=== PATIENT | female | born 1995 | race African-American/Black ===

== ENCOUNTER 2018-06-08 06:42 | Emergency (ER) | payer BC ==
[~2018-06-08 06:42] MED LIST: ALBU2.5V8 INH; ATOR40TA59 PO; CARV6.2541 PO; CYCL-331 PO; FENO145T30 PO; FLUO15CR2 TP; GABA-586 PO; IBUP800T19 PO; INSU100V5 IJ; ISOS30TA4 PO; LORA10TA65 PO; LOSA25TA11 PO; MOME220A IH; PRED50TA PO; RANI150T21 PO
[2018-06-08] MEDS ORDERED: ONDANSETRON PF 4 MG/2 ML VIAL. IV ONE (07:00)
[2018-06-08] MEDS ORDERED: IV NORMAL SALINE 1,000ML 1,000 ML IV SCH (07:00)
[2018-06-08 07:07] LABS: BASO % 0 % (0-3); EOS # 0.4 x10^3/uL (0.0-0.7); EOS % 4 % (0-3); HEMATOCRIT 40.6 % (36.0-47.0); HEMOGLOBIN 13.6 g/dL (12.0-15.5); LYMPH % 51 % (24-48); MEAN CORPUSCULAR HEMOGLOBIN 29 pg (25-35); MEAN CORPUSCULAR HGB CONC 33 g/dL (31-37); MEAN CORPUSCULAR VOLUME 86 fL (79-100); MONO # 0.6 x10^3/uL (0.0-1.1); MONO % 7 % (0-9); NEUT # 3.7 x10^3uL (1.8-7.7); NEUT % 38 % (31-73); PLATELET COUNT 348 x10^3/uL (140-400); RED BLOOD COUNT 4.71 x10^6/uL (3.50-5.40); RED CELL DISTRIBUTION WIDTH 13.9 % (11.5-14.5); WHITE BLOOD COUNT 9.7 x10^3/uL (4.0-11.0)
--- NOTE | 2018-06-08 07:11 | PHYS DOC ---
Past History Past Medical History: Asthma Past Surgical History: Other Smoking: Non-smoker Alcohol Use: None Drug Use: None Adult General Chief Complaint Chief Complaint: FLANK PAIN HPI HPI Patient is a 23 year old female who presents with complaint of severe right lower quadrant abdominal pain. Patient states that she awoke with pain shortly prior to arrival. Patient states that her pain as 10 out of 10 and states that it waxes and wanes. It is very sharp and radiates towards her right pelvis. Has had associated nausea. Denies any known fever. No previous history of similar symptoms. States that she is asymptomatic prior to going to bed last night. Past medical history for GERD and asthma. Has not taking medications for symptoms. Currently on Depo-Provera and is unsure when she last had a period but states that they're very irregular. Denies any current vaginal bleeding or abnormal discharge. Review of Systems Review of Systems Constitutional: Denies fever or chills [] Eyes: Denies change in visual acuity, redness, or eye pain [] HENT: Denies nasal congestion or sore throat [] Respiratory: Denies cough or shortness of breath [] Cardiovascular: Denies chest pain or edema[] GI: Abdominal pain, nausea, denies diarrhea[] : Denies dysuria or hematuria [] Musculoskeletal: Denies back pain or joint pain [] Integument: Denies rash or skin lesions [] Neurologic: Denies headache, focal weakness or sensory changes [] All other systems were reviewed and found to be within normal limits, except as documented in this note. Current Medications Current Medications Current Medications Medications (Trade) Dose Ordered Sig/Johny Start Time Stop Time Status Last Admin Dose Admin Fentanyl Citrate (Fentanyl 2ml Vial) 50 mcg PRN Q15MIN PRN 06/08/18 07:00 06/09/18 06:59 Ondansetron HCl (Zofran) 4 mg 1X ONCE 06/08/18 07:00 06/08/18 07:02 DC Sodium Chloride 1,000 ml @ 1,000 mls/hr Q1H 06/08/18 07:00 06/08/18 07:59 Allergies Allergies Allergies Coded Allergies Type Severity Reaction Last Updated Verified No Known Drug Allergies 07/20/13 No Physical Exam Physical Exam Constitutional: Alert, afebrile, vital signs stable, writhing in pain. [] HENT: Normocephalic, atraumatic, bilateral external ears normal, oropharynx moist, no oral exudates, nose normal. [] Eyes: PERRLA, EOMI, conjunctiva normal, no discharge. [] Neck: Normal range of motion, no tenderness, supple, no stridor. [] Cardiovascular:Heart rate regular rhythm, no murmur [] Lungs & Thorax: Bilateral breath sounds clear to auscultation [] Abdomen: Bowel sounds normal, soft, right lower quadrant tenderness to palpation , minimal guarding, no rebound tenderness, no masses, no pulsatile masses. [] Skin: Warm, dry, no erythema, no rash. [] Back: No tenderness, no CVA tenderness. [] Extremities: No tenderness, no cyanosis, no clubbing, ROM intact, no edema. [] Neurologic: Alert and oriented X 3, normal motor function, normal sensory function, no focal deficits noted. [] Current Patient Data Vital Signs Vital Signs Date Time Temp Pulse Resp B/P (MAP) Pulse Ox O2 Delivery O2 Flow Rate FiO2 06/08/18 07:52 22 99 Room Air 06/08/18 07:00 97.8 92 Lab Results Laboratory Tests Test 06/08/18 06:57 06/08/18 07:44 White Blood Count 9.7 x10^3/uL Red Blood Count 4.71 x10^6/uL Hemoglobin 13.6 g/dL Hematocrit 40.6 % Mean Corpuscular Volume 86 fL Mean Corpuscular Hemoglobin 29 pg Mean Corpuscular Hemoglobin Concent 33 g/dL Red Cell Distribution Width 13.9 % Platelet Count 348 x10^3/uL Neutrophils (%) (Auto) 38 % Lymphocytes (%) (Auto) 51 % Monocytes (%) (Auto) 7 % Eosinophils (%) (Auto) 4 % Basophils (%) (Auto) 0 % Neutrophils # (Auto) 3.7 x10^3uL Lymphocytes # (Auto) 5.0 x10^3/uL Monocytes # (Auto) 0.6 x10^3/uL Eosinophils # (Auto) 0.4 x10^3/uL Basophils # (Auto) 0.0 x10^3/uL Sodium Level 141 mmol/L Potassium Level 3.2 mmol/L Chloride Level 105 mmol/L Carbon Dioxide Level 27 mmol/L Anion Gap 9 Blood Urea Nitrogen 9 mg/dL Creatinine 1.1 mg/dL Estimated GFR (Cockcroft-Gault) 75.2 BUN/Creatinine Ratio 8 Glucose Level 102 mg/dL Calcium Level 8.9 mg/dL Total Bilirubin 0.2 mg/dL Aspartate Amino Transf (AST/SGOT) 18 U/L Alanine Aminotransferase (ALT/SGPT) 23 U/L Alkaline Phosphatase 81 U/L Total Protein 7.1 g/dL Albumin 3.7 g/dL Albumin/Globulin Ratio 1.1 Lipase 99 U/L Serum Test, Qualitative Negative Urine Collection Type U cath Urine Color Yellow Urine Clarity Cloudy Urine pH 7.5 Urine Specific [place] 1.020 Urine Protein Neg Urine Glucose (UA) Neg mg/dL Urine Ketones (Stick) Neg mg/dL Urine Blood Mod Urine Nitrite Neg Urine Bilirubin Neg Urine Urobilinogen Dipstick 0.2 mg/dL Urine Leukocyte Esterase Trace Urine RBC 3-5 /HPF Urine WBC Rare /HPF Urine Squamous Epithelial Cells None /LPF Urine Amorphous Sediment Present /HPF Urine Bacteria 0 /HPF Current Medications Medications (Trade) Dose Ordered Sig/Johny Route PRN Reason Start Time Stop Time Status Last Admin Dose Admin Fentanyl Citrate (Fentanyl 2ml Vial) 50 mcg PRN Q15MIN PRN IV PAIN GREATER THAN 3/10 06/08/18 07:00 06/09/18 06:59 06/08/18 07:52 Sodium Chloride 1,000 ml @ 1,000 mls/hr Q1H IV 06/08/18 07:00 06/08/18 08:00 DC 06/08/18 07:07 Ondansetron HCl (Zofran) 4 mg 1X ONCE IV 06/08/18 07:00 06/08/18 07:02 DC 06/08/18 07:07 Lidocaine HCl 12 ml/Dextrose 262 ml @ 786 mls/hr 1X ONCE IV 06/08/18 08:15 06/08/18 08:34 DC 06/08/18 08:36 Ketorolac Tromethamine (Toradol 30mg Vial) 30 mg 1X ONCE IV 06/08/18 09:30 06/08/18 09:31 DC 06/08/18 09:37 EKG EKG Not performed[] Radiology/Procedures Radiology/Procedures [address] [address] IMAGING REPORT Signed PATIENT: OSCAR BELTRAN ACCOUNT: [id number] : 1995 LOCATION: ER AGE: 23 SEX: F EXAM STATUS: REG ER ORD. PHYSICIAN: KARLOS COFFEY MD REASON: right lower quadrant/flank pain PROCEDURE: CT ABDOMEN PELVIS WO CONTRAST Examination: CT ABDOMEN PELVIS WO CONTRAST History: CT ABD/PELVIS W/O CONTRAST, -ACUTE RLQ PAIN X 2 HOURS, UNABLE TO URINATE Comparison/Correlation: None Findings: Axial images of the abdomen and pelvis were obtained without contrast. Sagittal and coronal reformatted images provided. Visualized lung bases are clear. Unenhanced liver, spleen, pancreas, and adrenal glands are normal. There are no radiopaque left Right hydronephrosis and hydroureter evident. There is a punctate calcification which appears represent a calculus at the right ureterovesical junction on axial image 125. Appendix is normal. No extraluminal gas. Trace pelvic free fluid. No bowel obstruction. No extraluminal gas. Small umbilical hernia contains omental fat. Bony structures are unremarkable. Impression: Mild right hydronephrosis and hydroureter. There is a punctate calcification which appears represent a calculus at the right ureterovesical junction. Adnexal follicles and pelvic free fluid are physiologic in appearance. PQRS Compliance Statement: One or more of the following individualized dose reduction techniques were utilized for this examination: 1. Automated exposure control 2. Adjustment of the mA and/or kV according to patient size 3. Use of iterative reconstruction technique Electronically signed by: Artem Sheffield MD (06/08/2018 8:09 AM) [facility] DICTATED AND SIGNED BY: ARTEM SHEFFIELD MD DATE: 06/08/18 0809 CC: KARLOS COFFEY MD; JAYLA SAHA MD ~ [] Course & Med Decision Making Course & Med Decision Making Pertinent Labs and Imaging studies reviewed. (See chart for details) Patient started on IV fluids and given multiple doses of fentanyl to help with pain. Due to inability to control pain, patient administered lidocaine IV for ureteral colic. The pain did not improve after administration. Was given additional dose of IV Toradol. Patient after given Toradol does report that the pain has resolved at this time and feels much better. Patient administered Flomax in the emergency department. We'll continue patient on [place], ibuprofen , Zofran, and Flomax for outpatient treatment. Advised follow-up with Dr. Vu of urology in 1 week if ureteral stone has not passed in that time. Advised return to emergency department for any worsening symptoms. Patient was understanding and in agreement with treatment plan.[] Dragon Disclaimer Dragon Disclaimer This electronic medical record was generated, in whole or in part, using a voice recognition dictation system. Departure Departure: Impression: Primary Impression: Ureteral colic Disposition: HOME, SELF-CARE Condition: IMPROVED Referrals: JAYLA SAHA MD (PCP) [facility] Patient Instructions: Kidney Stones Additional Instructions: Follow-up with urology in 1 week if your kidney stone has not passed on its own. Return to the emergency department for any worsening symptoms. Scripts Ondansetron (ONDANSETRON ODT) 4 Mg Tab.rapdis 1 TAB PO PRN Q6-8HRS PRN for NAUSEA/VOMITING, #16 TAB Prov: KARLOS COFFEY MD 06/08/18 Hydrocodone Bit/Acetaminophen (NORCO 5-325 TABLET) 1 Each Tablet 1-2 TAB PO Q4-6HRS PRN for PAIN, #30 TAB Prov: KARLOS COFFEY MD 06/08/18 Ibuprofen (IBUPROFEN) 600 Mg Tablet 600 MG PO Q6HRS PRN for PAIN, #30 TAB Prov: KARLOS COFFEY MD 06/08/18 Tamsulosin Hcl (FLOMAX) 0.4 Mg Cap.er.24h 1 CAP PO DAILY, #20 CAP 0 Refills Prov: KALROS COFFEY MD 06/08/18 KARLOS COFFEY MD Jun 08, 2018 07:11
[2018-06-08 07:19] LABS: PREG TEST PT QUAL NEGATIVE (NEG)
[2018-06-08 07:20] LABS: ALBUMIN 3.7 g/dL (3.4-5.0); ALBUMIN/GLOBULIN RATIO 1.1 (1.0-1.7); CALCIUM 8.9 mg/dL (8.5-10.1); CREATININE 1.1 mg/dL (0.6-1.0); GFR 75.2; POTASSIUM 3.2 mmol/L (3.5-5.1); TOTAL BILIRUBIN 0.2 mg/dL (0.2-1.0); TOTAL PROTEIN 7.1 g/dL (6.4-8.2)
--- NOTE | 2018-06-08 08:12 | RAD ---
Examination: CT ABDOMEN PELVIS WO CONTRAST History: CT ABD/PELVIS W/O CONTRAST, -ACUTE RLQ PAIN X 2 HOURS, UNABLE TO URINATE Comparison/Correlation: None Findings: Axial images of the abdomen and pelvis were obtained without contrast. Sagittal and coronal reformatted images provided. Visualized lung bases are clear. Unenhanced liver, spleen, pancreas, and adrenal glands are normal. There are no radiopaque left Right hydronephrosis and hydroureter evident. There is a punctate calcification which appears represent a calculus at the right ureterovesical junction on axial image 125. Appendix is normal. No extraluminal gas. Trace pelvic free fluid. No bowel obstruction. No extraluminal gas. Small umbilical hernia contains omental fat. Bony structures are unremarkable. Impression: Mild right hydronephrosis and hydroureter. There is a punctate calcification which appears represent a calculus at the right ureterovesical junction. Adnexal follicles and pelvic free fluid are physiologic in appearance. PQRS Compliance Statement: One or more of the following individualized dose reduction techniques were utilized for this examination: 1. Automated exposure control 2. Adjustment of the mA and/or kV according to patient size 3. Use of iterative reconstruction technique Electronically signed by: Artem Yan MD (06/08/2018 8:09 AM) [facility]
[2018-06-08] MEDS ORDERED: DEXTROSE 5% IV ONE (08:15)
[2018-06-08] MEDS ORDERED: LIDOCAINE 1% IV ONE (08:15)
[2018-06-08 08:19] LABS: BILIRUBIN,URINE NEG (NEG); CLARITY,URINE CLOUDY; COLOR,URINE YELLOW; GLUCOSE,URINE NEG (NEG)
[2018-06-08 08:20] LABS: AMORPHOUS SEDIMENT,UR PRESENT /HPF; BACTERIA,URINE 0 /HPF (0-FEW); NITRITE,URINE NEG (NEG); UROBILINOGEN,URINE 0.2 mg/dL (0.2 mg/dL); WBC,URINE RARE /HPF (0-4)
[2018-06-08] MEDS ORDERED: KETOROLAC 30 MG/ML VIAL. IV ONE (09:30)
[2018-06-08] MEDS ORDERED: TAMSULOSIN 0.4 MG CAP.ER.24H. PO ONE (10:30)
[2018-06-08] MEDS ORDERED: ONDA4TAB12 PO (10:31)
[2018-06-08] MEDS ORDERED: IBUP600T16 PO (10:31)
[2018-06-08] MEDS ORDERED: HYDR-3165 PO (10:31)
[2018-06-08] MEDS ORDERED: TAMS0.4C97 PO (10:31)
[2018-06-08 10:40] VITALS: BP 124/73
== END 2018-06-08 10:40 | disposition home or self-care (01) ==
LOC: ER 06:42
DX: N13.2 Hydronephrosis with renal and ureteral calculous obstruction (principal); J45.909 Unspecified asthma, uncomplicated
CPT/HCPCS: 36415; 74176; 80053; 81001; 83690; 84703; 85025; 87086; 96365; 96375; 99284; J1885; J2001; J2405; J3010; J7030

== ENCOUNTER → 2019-02-01 | Outpatient (CLI) | payer BC ==
[~2019-02-01] MED LIST changes: +HYDR-3165 PO; +IBUP600T16 PO; +ONDA4TAB12 PO; +RANI-376 PO; -RANI150T21 PO; +TAMS0.4C97 PO
== END | disposition home or self-care (01) ==
LOC: LAB 15:23
PROVIDERS: ATTEND Nurse Practitioner Women's Health
DX: Z11.3 Encounter for screening for infections with a predominantly sexual mode of transmission (principal)
CPT/HCPCS: 86592; 86703; 86803

== ENCOUNTER 2020-05-28 09:49 | Emergency (ER) | payer BC ==
[~2020-05-28] VITALS: Ht 170.2 cm; Wt 112.0 kg
[~2020-05-28 09:49] MED LIST changes: +FENO145T3 PO; -FENO145T30 PO; -ISOS30TA4 PO; +ISOS30TA68 PO
[2020-05-28 10:00] VITALS: BP 150/78
[2020-05-28] MEDS ORDERED: LIDOCAINE 2% 20 ML VIAL. IJ ONE (10:15)
[2020-05-28] MEDS ORDERED: CEPH500C PO (11:27)
[2020-05-28] MEDS ORDERED: SULF1TAB24 PO (11:27)
--- NOTE | 2020-05-28 11:28 | PHYS DOC ---
Past History Past Medical History: Asthma Past Surgical History: Other Additional Past Surgical Histo: Right ACL repair Smoking: Non-smoker Alcohol Use: Occasionally Drug Use: None General Adult EDM: Chief Complaint: FINGER INJURY HPI: HPI: 25 yo F presents to the ED with complaints of painful left index finger for the past 2 days stating swollen. Does admit to biting her fingers. Vaccines up-to-date including tetanus. No known history of MRSA. No associated rash or fever. Patient is right-hand dominant. Review of Systems: Review of Systems: Constitutional: Denies fever or chills Eyes: Denies change in visual acuity HENT: Denies nasal congestion or sore throat Respiratory: Denies cough or shortness of breath Cardiovascular: Denies chest pain or edema GI: Denies abdominal pain, nausea, vomiting, bloody stools or diarrhea : Denies dysuria Musculoskeletal: Denies back pain or CVA tenderness Integument: Denies rash Neurologic: Denies headache, focal weakness or sensory changes Endocrine: Denies polyuria or polydipsia Lymphatic: Denies swollen glands Psychiatric: Denies depression or anxiety Current Medications: Current Meds: Current Medications Medications (Trade) Dose Ordered Sig/Johny Start Time Stop Time Status Last Admin Dose Admin Lidocaine HCl 20 ml 1X ONCE 05/28/20 10:15 05/28/20 10:20 DC 05/28/20 10:15 20 ML Allergies: Allergies: Allergies Coded Allergies Type Severity Reaction Last Updated Verified No Known Drug Allergies 05/28/20 No Physical Exam: PE: Constitutional: Well developed, well nourished, no acute distress, non-toxic a ppearance. HENT: Normocephalic, atraumatic, Eyes: EOMI, conjunctiva normal, no discharge. Neck: Normal range of motion, supple, Cardiovascular: S1/2 present, regular rhythm Lungs & Thorax: Speaking in full sentences, bilateral equal chest rise, no tac hypnea or increased work of breathing Abdomen: soft, no tenderness, Skin: Warm, dry, no erythema, no rash. [] Back: No tenderness, no CVA tenderness. [] Extremities: No tenderness, no cyanosis, no lower extremity edema, left index finger with ulnar aspect with yellow fluid around nail margin Neurologic: Alert and oriented X 3, normal motor function, normal sensory function, no focal deficits noted. [] Psychologic: Affect normal, judgement normal, mood normal. [] fingers w/no pain with passive extension, no uniform digit swelling, no flexion posture and no percussion tenderness over entire flexor tendon sheath. Current Patient Data: Vital Signs: Vital Signs Date Time Temp Pulse Resp B/P (MAP) Pulse Ox O2 Delivery O2 Flow Rate FiO2 05/28/20 10:00 98.7 100 18 150/78 (102) 100 EKG: EKG: [] Radiology/Procedures: Radiology/Procedures: [] Heart Score: C/O Chest Pain: No Risk Factors: Risk Factors: DM, Current or recent (<one month) smoker, HTN, HLP, family history of CAD, obesity. Risk Scores: Score 0 - 3: 2.5% MACE over next 6 weeks - Discharge Home Score 4 - 6: 20.3% MACE over next 6 weeks - Admit for Clinical Observation Score 7 - 10: 72.7% MACE over next 6 weeks - Early Invasive Strategies Course & Med Decision Making: Course & Med Decision Making Pertinent Labs and Imaging studies reviewed. (See chart for details) Concern for left index finger paronychia.s/p digital block w/1cc fluid removal with scaple incision. Patient with relief after incision. Patient given wound care instructions and follow-up information. Will discharge home with strict ED return precautions were given for rash, worsening digital swelling, fever or flexor posturing. Encouraged urgent outpatient follow-up with PMD and hand surgery for definitive management. Life-threatening processes were considered but are low suspicion at this time, given history, physical exam and ED workup. Pt was educated on all prescription medications and adverse effects. All patient's questions were answered and pt was stable at time of discharge. Life/limb-threatening differential includes but is not limited to, trauma (fracture, dislocation, laceration, compartment syndrome, tendon or ligament injury), neurovascular injury or deficitcva/tia, infection (osteomyelitis, abscess, cellulitis, septic arthritis, necrotizing fasciitis), deep vein thrombosis, renal/cardiac/liver disease, medication adverse effect, lymphedema/anasarca, vascular insufficiency or malignancy, I spoken with the patient and her caregivers. I explained the patient's condition, diagnoses and treatment plan based on the information available to me at this time. I have answered the patient and her caregiver's questions and addressed any concerns. The patient and her caregivers have a good understanding of patient's diagnosis, condition and treatment plan as can be expected at this point. Vital signs have been stable. Patient's condition is stable and appropriate for discharge from the emergency department. Patient will pursue further outpatient evaluation with primary care physician or other designated or consulting physician as outlined in the discharge instructions. The patient and/or caregivers are agreeable to this plan of care and follow-up instructions have been explained in detail. The patient and/or caregivers have received these instructions in written form and have expressed an understanding of the discharge instructions. The patient and/or caregivers are aware that any significant change of condition or worsening of symptoms should prompt immediate return to this or the closest emergency department or call to [id number] Disclaimer: [employer] Disclaimer: This electronic medical record was generated, in whole or in part, using a voice recognition dictation system. Departure Departure: Impression: Primary Impression: Paronychia of left index finger Additional Impression: History of MRSA infection Disposition: 01 DC HOME SELF CARE/HOMELESS Condition: STABLE Referrals: JAYLA SAHA MD (PCP) in the next 7 days Patient Instructions: MRSA Overview, Paronychia Additional Instructions: [facility] Appointments may be made with Grzegorz Corbett MD, Vick Ernst MD, Gabriel Colón MD or Thomas Gil MD, by calling [phone] EMERGENCY DEPARTMENT GENERAL DISCHARGE INSTRUCTIONS Thank you for coming to [facility] (ED) today and trusting us with you care. We trust that you had a positivie experience in our Emergency Department. If you wish to speak to the department management, you may call the director at [phone]. YOUR FOLLOW UP INSTRUCTIONS ARE FOLLOWS: 1. Do you have a private Doctor? If you do not have a private doctor, please ask for a resource list of physicians or clinics that may be able to assist you with follow up care. 2. The Emergency Physician has interpreted your x-rays. The X-Ray specialist will also review them. If there is a change in the findings, you will be notified in 48 hours when at all possible. 3. A lab test or culture has been done, your results will be reviewed and you will be notified if you need a change in treatment. ADDITIONAL INSTRUCTIONS AND INFORMATION: 1. Your care today has been supervised by a physician who is specially trained in emergency care. Many problems require more than one evaluation for a complete diagnosis and treatment. We recommend that you schedule your follow up appointment as recommended to ensure complete treatment of you illness or injury. If you are unable to obtain follow up care and continue to have a problem, or if your condition worsens, we recommend that you return to the ED. 2. We are not able to safely determine your condition over the phone nor are we able to give sound medical advice over the phone. For these safety reasons, if you call for medical advice we will ask you to come to the ED for further evaluation. 3. If you have any questions regarding these discharge instructions please call the ED at [phone]. SAFETY INFORMATION: In the interest of safety, wellness, and injury prevention; we encourage you to wear your sealbelt, if you smoke; quite smoking, and we encourage family to use a protective helmet for bicycling and other sporting events that present an increased risk for head injury. IF YOUR SYMPTOMS WORSEN OR NEW SYMPTOMS DEVELOP, OR YOU HAVE CONCERNS ABOUT YOUR CONDITION; OR IF YOUR CONDITION WORSENS WHILE YOU ARE WAITING FOR YOUR FOLLOW UP APPOINTMENT; EITHER CONTACT YOUR PRIMARY CARE DOCTOR, THE PHYSICIAN WHOSE NAME AND NUMBER YOU WERE GIVEN, OR RETURN TO THE ED IMMEDIATELY. Scripts Cephalexin (CEPHALEXIN) 500 Mg Capsule 2 CAP PO BID for finger infection for 10 Days, #40 CAP Prov: RACHELLE BORGES DO 05/28/20 Sulfamethoxazole/Trimethoprim (BACTRIM DS TABLET) 1 Each Tablet 1 TAB PO BID for finger infection for 10 Days, #20 TAB 0 Refills Prov: RACHELLE BORGES DO 05/28/20 RACHELLE BORGES DO May 28, 2020 11:28
[2020-05-28] MEDS ORDERED: ACETAMINOPHEN 500 MG TABLET PO ONE ×2 (12:06→12:15)
== END 2020-05-28 12:11 | disposition home or self-care (01) ==
LOC: ER 09:49
DX: L03.012 Cellulitis of left finger (principal); Z86.14 Personal history of Methicillin resistant Staphylococcus aureus infection; J45.909 Unspecified asthma, uncomplicated
CPT/HCPCS: 10060; 99283; J2001

== ENCOUNTER 2020-06-10 08:13 | Emergency (ER) | payer BC ==
[~2020-06-10] VITALS: Ht 170.2 cm; Wt 112.0 kg
[~2020-06-10 08:13] MED LIST changes: +CEPH500C PO; +SULF1TAB24 PO
[2020-06-10 08:28] VITALS: BP 146/105
--- NOTE | 2020-06-10 08:41 | PHYS DOC ---
Past History Past Medical History: Asthma Past Surgical History: Other Additional Past Surgical Histo: Right ACL repair Smoking: Cigarettes Alcohol Use: Occasionally Drug Use: None Adult General Chief Complaint Chief Complaint: SHORTNESS OF BREATH [facility] HPI Patient is a 25-year-old female presenting for concerns of short of breath. She reports about an hour prior to presentation she swallowed wrong began coughing a nd was fearful that she was having an asthma attack. She reports that she has had these episodes in the past and when they occur she normally gets "pretty bad asthma attacks". She reports when she started coughing she reached for her rescue inhaler had 1 puff remaining and is slightly improved after using set inhaler. Continued to have shortness of breath on her way and however reports remarkably improved breathing since presentation. Reports that she did not want to come in by her grandpa made her. Reports that she has never had to have a breathing tube for her asthma and is not on any maintenance therapy and has not been on any maintenance therapy for several years for her asthma. Denies fevers productive cough, chest pain, increased lower extremity edema, or any nausea vomiting diarrhea. Denies taking any daily medications. Review of Systems Review of Systems Fourteen body systems of review of systems have been reviewed. See HPI for pertinent positives and negative responses, other bell all other systems are negative, non-pertinent or non-contributory Allergies Allergies Allergies Coded Allergies Type Severity Reaction Last Updated Verified No Known Drug Allergies 05/28/20 No Physical Exam Physical Exam Constitutional: Well developed, well nourished, no acute distress, non-toxic appearance. HENT: Normocephalic, atraumatic, bilateral external ears normal, oropharynx moist, no oral exudates, nose normal. Eyes: PERRLA, EOMI, conjunctiva normal, no discharge. Neck: Normal range of motion, no tenderness, supple, no stridor. Cardiovascular: Heart rate regular, sinus rhythm, no murmurs rubs or gallops no lower extremity edema extremities are well perfusing with pulses 2 out of 4 in both upper and lower extremity. Lungs & Thorax: Bilateral breath sounds clear to auscultation no wheezing noted on exam. No respiratory distress or accessory muscle use Abdomen: Bowel sounds normal, soft, no tenderness, no masses, no pulsatile masses. Nonsurgical abdomen, no peritoneal signs Skin: Warm, dry, no erythema, no rash. Back: No tenderness, no CVA tenderness. Extremities: No tenderness, no cyanosis, no clubbing, ROM intact, no edema. Neurologic: Alert and oriented X 3, grossly normal motor & sensory function, no focal deficits noted. Psychologic: Affect normal, judgement normal, mood normal. Current Patient Data Vital Signs Vital Signs Date Time Temp Pulse Resp B/P (MAP) Pulse Ox O2 Delivery O2 Flow Rate FiO2 06/10/20 08:28 97.8 115 16 146/105 (119) 99 Room Air Vital Signs Date Time Temp Pulse Resp B/P (MAP) Pulse Ox O2 Delivery O2 Flow Rate FiO2 06/10/20 09:17 100 Room Air 06/10/20 08:28 97.8 115 16 146/105 (119) EKG EKG EKG interpreted by me at 913 in the morning displayed sinus tachycardia with normal rhythm no acute ST elevations or depressions normal axis normal intervals, normal EKG. Radiology/Procedures Radiology/Procedures Chest AP portable 06/10/2020. Reason for exam: Shortness of breath. Comparison is made with an exam of 09/28/2013. No infiltrate or effusion is seen. Heart size and pulmonary vascularity appear normal. IMPRESSION: No acute disease. Electronically signed by: Best Doe Jr., MD (06/10/2020 8:57 AM) [id number] Heart Score C/O Chest Pain: No HEART Score for Chest Pain: HEART Score for Chest Pain Response (Comments) Value History Slighlty/Non-Suspicious 0 Age < 45 0 Risk Factors No Risk Factors 0 Total 0 Risk Factors: Risk Factors: DM, Current or recent (<one month) smoker, HTN, HLP, family history of CAD, obesity. Risk Scores: Risk Factors: DM, Current or recent (<one month) smoker, HTN, HLP, family history of CAD, obesity. Course & Med Decision Making Course & Med Decision Making Patient is a 25-year-old female presenting for concerns due to asthma attack. Slightly tachycardic on exam and physical exam reveals no abnormalities. Patient continued to report some residual chest tightness and shortness of breath. tachycardia on presentation was most likely secondary to recent albuterol use, chest x-ray and EKG were ordered to evaluate and unremarkable for acute disease Patient reexamined numerous times throughout ER visit and asymptomatic. Discussed low likelihood of genuine exacerbation requiring steroids. Discussed potential risk of an acute presentation of more concerning disease but discussed low likelihood of further diagnostic work-up while in ER setting. Patient agr eed, she deferred further ER work-up Patient infrequently uses rescue inhaler, she is here today mostly concerned because she does not have a prescription for new inhaler as she just ran out prior to arrival, this will be refilled for her Patient has good access to care with primary care physician and can be seen within upcoming 72 hours. Strict return precautions were discussed with good understanding by patient, all questions and concerns addressed prior to ER departure Dragon Disclaimer Dragon Disclaimer This electronic medical record was generated, in whole or in part, using a voice recognition dictation system. Departure Departure: Impression: Primary Impression: Asthma Disposition: 01 DC HOME SELF CARE/HOMELESS Condition: STABLE Referrals: JAYLA SAHA MD (PCP) Patient Instructions: Asthma Prevention-Brief, Asthma, Adult Additional Instructions: You were seen for your asthma. I do not feel you are suffering from a genuine exacerbation at this time but rather, lack of having your rescue inhaler. You should be checking your peak flows daily and taking all of your controller and rescue inhalers as previously prescribed. Please utilize prescribed albuterol inhaler for rescue use as instructed on inhaler. You need to follow-up with your primary care physician tomorrow to review ER visit today, it does not sound like you will require further maintenance medication for your asthma as it sounds like it is very well controlled. As discussed, your presentation today was likely due to being out of your rescue inhaler completely as you resolved with x1 nebulized albuterol treatment today. Return to the ED if you develop worsening cough, shortness of breath, fever > 101, chest pain, or any other new or concerning symptoms. You need to follow up with your primary care doctor as soon as possible as a severe asthma exacerbation can be fatal. Scripts Albuterol Sulfate (Proair Respiclick) 90 Mcg Aer.pow.ba 2 PUFF IH PRN Q4-6HRS PRN for shortness of breath, #1 INHALER 0 Refills Prov: KAYLYNN MARIN DO 06/10/20 KAYLYNN MARIN DO Jun 10, 2020 08:41
--- NOTE | 2020-06-10 08:59 | RAD ---
Chest AP portable 06/10/2020. Reason for exam: Shortness of breath. Comparison is made with an exam of 09/28/2013. No infiltrate or effusion is seen. Heart size and pulmonary vascularity appear normal. IMPRESSION: No acute disease. Electronically signed by: Best Doe Jr., MD (06/10/2020 8:57 AM) [id number]
[2020-06-10] MEDS ORDERED: IPRATRPIUM/ALBUTEROL 0.5/2.5MG 3 ML NEBU. ONE (09:08)
[2020-06-10] MEDS ORDERED: IPRATRPIUM/ALBUTEROL 0.5/2.5MG 3 ML NEBU. NEB ONE (09:15)
[2020-06-10] MEDS ORDERED: PROAIR RESPICL90 MCG IH (10:19)
--- NOTE | 2020-06-10 12:29 | EKG ---
[address] [address] Test Date: 2020-06-10 Test Time: 09:08:59 Pat Name: OSCAR BELTRAN Department: Room: Gender: F [employer] Painter: DAVID : 1995 Requested By: KAYLYNN MARIN Order Number: [id number] Reading MD: Measurements Intervals [place] Rate: 110 P: 45 TX: 130 QRS: 81 QRSD: 84 T: 15 QT: 334 QTc: 458 Interpretive Statements SINUS TACHYCARDIA OTHERWISE NORMAL ECG RI6.02 No previous ECG available for comparison
== END 2020-06-10 10:29 | disposition home or self-care (01) ==
LOC: ER 08:13
DX: J45.909 Unspecified asthma, uncomplicated (principal); F17.210 Nicotine dependence, cigarettes, uncomplicated
CPT/HCPCS: 71045; 93005; 94640; 99283-25

== ENCOUNTER 2020-06-27 12:51 | Emergency (ER) | payer BC ==
[~2020-06-27] VITALS: Ht 170.2 cm; Wt 109.3 kg
[~2020-06-27 12:51] MED LIST changes: +PROAIR RESPICL90 MCG IH
--- NOTE | 2020-06-27 13:14 | PHYS DOC ---
Past History Past Medical History: Asthma Past Surgical History: Other Additional Past Surgical Histo: Right ACL repair Smoking: Cigarettes Alcohol Use: Occasionally Drug Use: None Adult General Chief Complaint Chief Complaint: SHORTNESS OF BREATH HPI HPI Patient is a 25-year-old female presenting for shortness of breath. This is an acute on chronic problem. Has history of asthma, was seen at our facility appro ximately 2 weeks ago for similar complaints stating she started having shortness of breath due to changing of seasons but did not have albuterol inhaler and was unable to see primary care for refill. A prescription for this was provided for her at last visit, she filled this but subsequently lost it. She has continued to be short of breath and has been using a friend's "blue" inhaler, she is unsure what type of inhaled medication this is but states it is provided mild relief. Has continued to have wheezing and mild sputum production without any systemic symptoms, no fever. She contacted her primary care physician today and discuss symptoms, there is concern for potential Covid infection and so given all symptoms, she was advised to proceed to our ER for COVID-19 testing and management of wheezing. She has no history of blood clots, she does admit to smoking cigarettes that has exacerbated her shortness of breath, admits she has not smoked in last x7 days due to wheezing and ongoing shortness of breath is sues. No hemoptysis, no recent long distance travel or known COVID-19 positive individual contact Review of Systems Review of Systems Fourteen body systems of review of systems have been reviewed. See HPI for pertinent positives and negative responses, other bell all other systems are negative, non-pertinent or non-contributory Allergies Allergies Allergies Coded Allergies Type Severity Reaction Last Updated Verified No Known Drug Allergies 06/27/20 No Physical Exam Physical Exam Constitutional: Well developed, well nourished, no acute distress, non-toxic appearance. [] HENT: Normocephalic, atraumatic, bilateral external ears normal, oropharynx moist, no oral exudates, nose normal. [] Eyes: PERRLA, EOMI, conjunctiva normal, no discharge. [] Neck: Normal range of motion, no tenderness, supple, no stridor. [] Cardiovascular:Heart rate regular rhythm, no murmur [] Lungs & Thorax: Bilateral breath sounds clear to auscultation [] Abdomen: Bowel sounds normal, soft, no tenderness, no masses, no pulsatile masses. [] Skin: Warm, dry, no erythema, no rash. [] Back: No tenderness, no CVA tenderness. [] Extremities: No tenderness, no cyanosis, no clubbing, ROM intact, no edema. [] Neurologic: Alert and oriented X 3, normal motor function, normal sensory function, no focal deficits noted. [] Psychologic: Affect normal, judgement normal, mood normal. [] EKG EKG EKG ordered and interpreted by myself at 1335 hrs. as sinus rhythm at 108 bpm, unremarkable intervals, no axis deviation, no acute ischemic findings, no STEMI Radiology/Procedures Radiology/Procedures [] Heart Score Risk Factors: Risk Factors: DM, Current or recent (<one month) smoker, HTN, HLP, family hist ory of CAD, obesity. Risk Scores: Risk Factors: DM, Current or recent (<one month) smoker, HTN, HLP, family history of CAD, obesity. Course & Med Decision Making Course & Med Decision Making Pertinent Labs and Imaging studies reviewed. (See chart for details) [] Dragon Disclaimer Dragon Disclaimer This electronic medical record was generated, in whole or in part, using a voice recognition dictation system. Departure Departure: Impression: Primary Impression: Asthma exacerbation Additional Impression: Person under investigation for COVID-19 Disposition: 01 HOME / SELF CARE / HOMELESS Condition: IMPROVED Referrals: JAYLA SAHA MD (PCP) Patient Instructions: Asthma, Acute Bronchospasm, Asthma, Adult Additional Instructions: You were seen for likely an asthma exacerbation, and possible infection with COVID-19. Your physical exam was reassuring. Your chest x-ray was normal. We tested you for COVID-19 but this test does not come back for 1 to 2 days. In the meantime you need to quarantine yourself at home away from all other individuals, especially those who are elderly or have any other chronic health issues or an immunocompromised status. You should return to the ED if you develop worsening cough, shortness of breath, chest pain, or any other new or concerning symptoms. Alternate Tylenol and ibuprofen as needed for body aches and pain. If your test does come back positive you need to quarantine yourself for 10 days until symptom-free. You should make sure to drink plenty of fluids and get plenty of rest. Please utilize albuterol inhaler given to you while in the ER, ensure you do not lose this prior to ER departure. As previously discussed, you need PCP follow-up and PFTs obtained in outpatient setting once acute resolution of your respiratory illness resolves. Utilize steroid burst also given to you today. I did disclose low likelihood of other potentially life-threatening abnormalities such as blood clot but given that your symptoms improved with ER intervention, this is unlikely. As mention, please be sure to come back for repeat evaluation at our ER or closest medical facility if s ymptoms do not improve and/or worsen prior to outpatient follow-up. It was a pleasure to take care of you and I wish you speedy follow-up Scripts Prednisone (PREDNISONE) 50 Mg Tablet 1 TAB PO DAILY for ASTHMA EXACERBATION, #4 TAB Prov: KAYLYNN MARIN DO 06/27/20 Problem Qualifiers KAYLYNN MARIN DO Jun 27, 2020 13:14
[2020-06-27] MEDS ORDERED: predniSONE 20 MG TABLET PO ONE (13:15)
[2020-06-27] MEDS ORDERED: ALBUTEROL SULFATE 8GM INHALER. INH ONE (13:15)
--- NOTE | 2020-06-27 13:35 | RAD ---
INDICATION: Reason: shob / Spl. Instructions: / History: COMPARISON: May 2020 FINDINGS: Single view of chest obtained. No focal airspace consolidation. Cardiomediastinal contour unremarkable. No acute osseous abnormality. IMPRESSION: * No focal airspace consolidation or edema. Electronically signed by: David Garcia MD (06/27/2020 1:33 PM) [id number]
--- NOTE | 2020-06-27 13:56 | EKG ---
[address] [address] Test Date: 2020-06-27 Test Time: 13:28:22 Pat Name: OSCAR BELTRAN Department: Room: Gender: F [employer] Consultant: DMITRI : 1995 Requested By: KAYLYNN MARIN Order Number: [id number] Reading MD: Measurements Intervals [place] Rate: 108 P: 56 ME: 128 QRS: 66 QRSD: 80 T: 54 QT: 344 QTc: 465 Interpretive Statements SINUS TACHYCARDIA OTHERWISE NORMAL ECG RI6.02 No previous ECG available for comparison
[2020-06-27] MEDS ORDERED: PRED50TA PO (14:00)
[2020-06-27 14:14] VITALS: BP 147/70
== END 2020-06-27 14:17 | disposition home or self-care (01) ==
LOC: ER 12:51
DX: J45.901 Unspecified asthma with (acute) exacerbation (principal); F17.210 Nicotine dependence, cigarettes, uncomplicated; Z20.822 Contact with and (suspected) exposure to COVID-19
CPT/HCPCS: 71045; 93005; 99285; C9803; J7512; U0003; U0005

== ENCOUNTER 2020-09-06 17:59 | Emergency (ER) | payer BC ==
[~2020-09-06] VITALS: Ht 170.2 cm; Wt 109.0 kg
[2020-09-06 18:21] VITALS: BP 145/70
--- NOTE | 2020-09-06 18:34 | PHYS DOC ---
Past History Past Medical History: Asthma (TREVON GREEN APRN) Past Surgical History: Other Additional Past Surgical Histo: Right ACL repair (TREVON GREEN APRN) Smoking: Cigarettes Additional Smoking Information: 03/05 PPD Alcohol Use: Rarely Drug Use: None (TREVON GREEN APRN) General Adult EDM: Chief Complaint: KNEE INJURY HPI: HPI: Patient is a 25-year-old female being seen in the ER today for left knee pain. Patient reports that she was in the pool playing with her family and her cousins jumped on her knee and she felt a pop. Patient rates pain 7 out of 10, she reports that she is unable to bear weight, pain is worse with movement and whenever she does move her knee the pain does radiate down to her foot. Patient took nothing for pain prior to arrival. Patient denies any numbness or tingling to extremity, fevers, wounds. (TREVON GREEN APRN) Review of Systems: Review of Systems: 14 body systems of the review of systems have been reviewed. See HPI for pertinent positive and negative responses, otherwise all other systems are negative, nonpertinent or noncontributory (TREVON GREEN APRN) Allergies: Allergies: Allergies Coded Allergies Type Severity Reaction Last Updated Verified No Known Drug Allergies 06/27/20 No (TREVON GREEN APRN) Physical Exam: PE: Constitutional: Well developed, well nourished, no acute distress, non-toxic appearance. [] HENT: Normocephalic, atraumatic Eyes: PERRL, conjunctiva normal, no discharge. [] Neck: Normal range of motion, no stridor. [] Cardiovascular: Normal peripheral perfusion Lungs & Thorax: Normal work of breathing, no tachypnea Skin: Warm, dry, no erythema, no rash. [] Back: No tenderness, normal range of motion Extremities: No tenderness, no cyanosis, no clubbing, left knee: Mild swelling noted to the anterior aspect of her left knee, no wounds or obvious deformities, neurologically intact with 3+ DP and PT pulses, decreased range of motion due to pain Neurologic: Alert and oriented X 3, normal motor function, normal sensory f unction, no focal deficits noted. [] Psychologic: Affect normal, judgement normal, mood normal. [] (TREVON GREEN APRN) EKG: EKG: [] (TREVON GREEN APRN) Radiology/Procedures: Radiology/Procedures: [] (TREVON GREEN APRN) Heart Score: C/O Chest Pain: No Risk Factors: Risk Factors: DM, Current or recent (<one month) smoker, HTN, HLP, family history of CAD, obesity. Risk Scores: Score 0 - 3: 2.5% MACE over next 6 weeks - Discharge Home Score 4 - 6: 20.3% MACE over next 6 weeks - Admit for Clinical Observation Score 7 - 10: 72.7% MACE over next 6 weeks - Early Invasive Strategies (TREVON GREEN APRN) Course & Med Decision Making: Course & Med Decision Making Pertinent Labs and Imaging studies reviewed. (See chart for details) Patient is a 25-year-old female presents to the ER with left knee pain following an injury. An x-ray of the knee was done in the ER and it was negative for any acute findings. An Seferino wrap was placed on patient's knee due to patient's body habitus. Patient was educated on the rice protocol. I discussed with patient all findings and diagnostic testing as well as the need to follow-up with PCP for further evaluation and treatment or return to the ER if any new or worsening symptoms. Strict return precautions were also discussed at length. Patient voiced understanding and agreement with the plan. Patient is hemodynamically stable at the time of disposition. (TREVON GREEN APRN) Dragon Disclaimer: Dragon Disclaimer: This electronic medical record was generated, in whole or in part, using a voice recognition dictation system. (TREVON GREEN APRN) Departure Departure: Impression: Primary Impression: Knee sprain Qualified Codes: S83.92XA - Sprain of unspecified site of left knee, initial encounter Disposition: HOME / SELF CARE / HOMELESS Condition: GOOD Referrals: JAYLA SAHA MD (PCP) Patient Instructions: MINI - Routine Care for Injuries Additional Instructions: .You were seen in the emergency department today for a musculoskeletal problem that will likely improve over time. Your symptoms may be improved by something called the rice protocol. This is rest, ice, compression, elevation. Please follow-up when doing intense exercises that may make the pain worse. Sometimes gentle stretching can provide relief, but be careful to injury. It is important to perform gentle range of motion exercises to prevent stiff joints and chronic pain. Use ice packs over the affected areas to help decrease your pain. For the first 24 hours you can apply ice 20 minutes on 20 minutes off for 4 times per day. Sometimes compression such as the use of an Seferino wrap can help with the swelling. You may also elevate the affected area to help with the swelling. You can also take Tylenol or ibuprofen for the pain. EMERGENCY DEPARTMENT GENERAL DISCHARGE INSTRUCTIONS Thank you for coming to [facility] (ED) today and trusting us with you care. We trust that you had a positivie experience in our Emergency Department. If you wish to speak to the department management, you may call the director at [phone]. YOUR FOLLOW UP INSTRUCTIONS ARE FOLLOWS: 1. Do you have a private Doctor? If you do not have a private doctor, please ask for a resource list of physicians or clinics that may be able to assist you with fol low up care. 2. The Emergency Physician has interpreted your x-rays. The X-Ray specialist will also review them. If there is a change in the findings, you will be notified in 48 hours when at all possible. 3. A lab test or culture has been done, your results will be reviewed and you will be notified if you need a change in treatment. ADDITIONAL INSTRUCTIONS AND INFORMATION: 1. Your care today has been supervised by a physician who is specially trained in emergency care. Many problems require more than one evaluation for a complete diagnosis and treatment. We recommend that you schedule your follow up appointment as r ecommended to ensure complete treatment of you illness or injury. If you are unable to obtain follow up care and continue to have a problem, or if your condition worsens, we recommend that you return to the ED. 2. We are not able to safely determine your condition over the phone nor are we able to give sound medical advice over the phone. For these safety reasons, if you call for medical advice we will ask you to come to the ED for further evaluation. 3. If you have any questions regarding these discharge instructions please call the ED at [phone]. SAFETY INFORMATION: In the interest of safety, wellness, and injury prevention; we encourage you to wear your sealbelt, if you smoke; quite smoking, and we encourage family to use a protective helmet for bicycling and other sporting events that present an increased risk for head injury. IF YOUR SYMPTOMS WORSEN OR NEW SYMPTOMS DEVELOP, OR YOU HAVE CONCERNS ABOUT YOUR CONDITION; OR IF YOUR CONDITION WORSENS WHILE YOU ARE WAITING FOR YOUR FOLLOW UP APPOINTMENT; EITHER CONTACT YOUR PRIMARY CARE DOCTOR, THE PHYSICIAN WHOSE NAME AND NUMBER YOU WERE GIVEN, OR RETURN TO THE ED IMMEDIATELY. Attending Signature Attending Signature I have participated in the care of this patient and I have reviewed and agree with all pertinent clinical information above including history, exam, and recommendations. (FELIX MAZARIEGOS MD) TREVON GREEN APRN Sep 06, 2020 18:34 FELIX MAZARIEGOS MD Sep 07, 2020 18:38
--- NOTE | 2020-09-06 19:27 | RAD ---
EXAM: AP, lateral and oblique views of the left knee DATE: 09/06/2020 6:23 PM INDICATION: Reason: knee injury / Spl. Instructions: / History: COMPARISON: No Prior FINDINGS: No acute fracture or dislocation. Joint spaces are preserved without significant degenerative/prolife rative change. IMPRESSION: No acute fracture or dislocation. Electronically signed by: Dallin Aaron MD (09/06/2020 7:25 PM) VICKEY
== END 2020-09-06 20:05 | disposition home or self-care (01) ==
LOC: ER 17:59
DX: S83.92XA Sprain of unspecified site of left knee, initial encounter (principal); J45.909 Unspecified asthma, uncomplicated; F17.200 Nicotine dependence, unspecified, uncomplicated; X50.9XXA Other and unspecified overexertion or strenuous movements or postures, initial encounter; Y93.89 Activity, other specified; Y92.89 Other specified places as the place of occurrence of the external cause; Y99.8 Other external cause status
CPT/HCPCS: 73562; 99283